=== PATIENT | male | born 2000 | race Caucasian/White ===

== ENCOUNTER 2019-01-09 14:09 | Emergency (ER) | payer MEDICAID, SELFPAY ==
[2019-01-09 14:14] VITALS: BP 143/80; PULSE 83; RESP 16; TEMP 36.3; O2SAT 96
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
== END 2019-01-09 15:47 | disposition home or self-care (01) ==
PROVIDERS: Emergency Provider Physician Assistant
DX: S61.442A Puncture wound with foreign body of left hand, initial encounter (principal); W34.010A Accidental discharge of airgun, initial encounter
CPT/HCPCS: 90471; 99284; 73130